=== PATIENT | male | born 1990 | race Caucasian/White ===

== ENCOUNTER 2023-08-23 10:55 | Emergency (ER) | payer OTHER, SELFPAY ==
[2023-08-23 11:09] VITALS: BP 143/92; PULSE 106; RESP 16; TEMP 36.6; O2SAT 98
[2023-08-23 11:11] VITALS: BP 143/92; PULSE 106; RESP 16; TEMP 36.6; O2SAT 98
--- NOTE | 2023-08-23 11:19 | ED.EYEPROB ---
HPI - Eye Problem General Chief complaint: Upper Respiratory Infection Stated complaint: Cold symptoms and rt eye infection Time Seen by Provider: 08/23/23 11:19 Source: patient Mode of arrival: ambulatory Limitations: no limitations History of Present Illness HPI Narrative: 32-year-old male presented for complaint of redness, pain and irritation to the right eye. Onset last night. He states it occurred after he had been mowing grass but denies known foreign body or injury. Rinsed the eye with eye drops last night. Endorses waking this morning with yellow crust and drainage to the lashes. Denies vision changes, photophobia, dizziness, nausea, vomiting or fever. Patient also reports nasal congestion and cough. He has taken DayQuil. Denies shortness of, wheezing, nausea, vomiting, fevers or chills. MD chief complaint: eye pain Related Data Allergies Allergy/AdvReac Type Severity Reaction Status Date / Time Penicillins Allergy Unknown Verified 08/23/23 11:10 Sulfa (Sulfonamide Allergy Unknown Verified 08/23/23 11:10 Antibiotics) Review of Systems Review of Systems: CONSTITUTIONAL: Denies body aches, fever, chills EYES:Endorses redness and pain to right eye; Denies visual changes, FB sensation, photophobia ENT: Denies rhinorrhea, congestion, sore throat, or otalgia. CARDIOVASCULAR: Denies chest pain, palpitations RESPIRATORY: Denies cough or dyspnea. SKIN: Denies rash, itching, or wounds. MUSCULOSKELETAL: Denies back pain, joint pain, or myalgia. NEUROLOGIC: Denies headache All systems reviewed & are unremarkable except as noted in HPI and below PMFSH Comments At time of signature, I have reviewed and agree with nursing past medical, surgical, social and family history unless otherwise noted. Please see nursing chart for further information. There is no relevant family history pertinent to the presenting complaint Exam Narrative: GENERAL: Well-appearing EYES: Right conjunctival injection, upper eye lid swelling/redness; no purulent drainage. PERRLA, EOMI. Lid eversion shows no FB. Corneal abrasion noted at 9o'clock position over the iris per godoy lamp exam. ENT: Mucous membranes pink and moist. Nasal congestion. TMs normal bilaterally. Throat normal, tonsils absent. Uvula midline. CHEST: Clear to auscultation. HEART: Regular rate and rhythm. SKIN: Warm, dry, no rash. Normal skin turgor. NEURO: No focal deficits. Alert and oriented x3 PSYCH: Normal affect. Eyes: Eyes/upper lids images: 1. area of corneal abrasion Course Course Emergency Course: Patient is aware of diagnosis, understands and agrees to treatment plan. Anticipatory guidance given. Patient agrees to follow-up as directed and is aware of reasons to seek care at the emergency department. Portions of this record may have been created with voice recognition software Level of Care: Express Care Visit Vital Signs Vital signs: Vital Signs Temperature 97.9 F 08/23/23 11:09 Pulse Rate 106 H 08/23/23 11:09 Respiratory Rate 16 08/23/23 11:09 Blood Pressure 143/92 H 08/23/23 11:09 Pulse Oximetry 98 08/23/23 11:09 Oxygen Delivery Room Air 08/23/23 11:09 Temperature 97.9 F 08/23/23 11:11 Pulse Rate 106 H 08/23/23 11:11 Respiratory Rate 16 08/23/23 11:11 Blood Pressure 143/92 H 08/23/23 11:11 Pulse Oximetry 98 08/23/23 11:11 Oxygen Delivery Room Air 08/23/23 11:11 Procedures FB Removal Eye Foreign Body #1: Location: eye (R) Topical anesthetic used: tetracaine Evidence of corneal penetration: Yes (corneal abrasion) Procedure performed under: other (godoy lamp) Patient tolerated procedure: well and no complications Foreign Body Removal Narrative: Right Eye was anesthetized with 1 drop of tetracaine and anesthesia was achieved. Lid was everted and examined for foreign body. Corneal abrasion noted to 9o'cloc position over the iris. No foreign
[2023-08-23] MEDS: DACRIOSE EYE IRRIGATION 118 ML BOTTLE 100 ML RIGHT EYE (11:23)
[2023-08-23] MEDS: TETRACAINE HCL 0.5% OPHTH SOLN 4 ML BTL 1 DROP RIGHT EYE (11:24)
[2023-08-23] MEDS: FLUORESCEIN SOD 1 MG/STRIP EACH EYE (11:24)
== END 2023-08-23 11:38 | disposition home or self-care (01) ==
PROVIDERS: Emergency Provider Nurse Practitioner Family; Referring Provider Emergency Medicine
DX: S05.01XA Injury of conjunctiva and corneal abrasion without foreign body, right eye, initial encounter (principal); X58.XXXA Exposure to other specified factors, initial encounter; J30.9 Allergic rhinitis, unspecified
CPT/HCPCS: 99213; A9270; G0463

== ENCOUNTER 2023-08-24 11:42 | Emergency (ER) | payer OTHER, SELFPAY ==
--- NOTE | 2023-08-24 11:46 | ED.URI ---
HPI - URI/Sore Throat General Chief Complaint: Ear Stated Complaint: Ear pain Time Seen by Provider: 08/24/23 11:54 Source: patient, RN notes reviewed and old records reviewed Mode of arrival: ambulatory Limitations: no limitations History of Present Illness HPI Narrative: 32-year-old male presents to [facility] pain that started this left ear pain since this morning. Was seen yesterday for a corneal abrasion. Also complaining of sinus congestion. Reports that he has been taking DayQuil Denies any fevers Onset (ago): hour(s) Related Data Allergies Allergy/AdvReac Type Severity Reaction Status Date / Time Penicillins AdvReac Mild Rash Verified 08/24/23 11:46 Sulfa (Sulfonamide AdvReac Mild Rash Verified 08/24/23 11:46 Antibiotics) Review of Systems Review of Systems: All systems reviewed & are unremarkable except as noted in HPI and below Constitutional: Constitutional: Reports no additional constitutional complaints Eyes: Eyes: Reports no additional eye complaints ENT: Reports as per HPI and Reports otalgia Cardiovascular: Cardiovascular: Reports no additional cardiovascular complaints, Denies chest pain and Denies dyspnea Respiratory: Respiratory: Reports no additional respiratory complaints, Denies chest congestion, Denies cough and Denies dyspnea Gastrointestinal: Gastrointestinal: Reports no additional gastrointestinal complaints, Denies abdominal pain, Denies nausea and Denies vomiting Musculoskeletal: Musculoskeletal: Reports no additional musculoskeletal complaints Integumentary/Breasts: Skin/Breast: Reports system reviewed and no additional complaints, except as docu Neurologic: Reports system reviewed and no additional complaints, except as documented Psychiatric: Psychiatric: Reports no additional psychiatric complaints Allergic/Immunologic: Allergic/Immunologic: Reports no additional allergic/immunologic complaints PMFSH Comments At the time of my signature, I reviewed and agree with the nursing past medical, surgical, social, and family history. There is no relevant family history pertinent to the patient complaint. Exam Const: General: cooperative, healthy appearing, comfortable, no acute distress, well developed, alert and well nourished Nutritional Appearance: well nourished Orientation/consciousness: patient oriented x3 Limitations: no limitations HENMT: Head: normal to inspection Ears: hearing grossly normal bilaterally, external ears normal, EAC's normal, mastoids normal, no periauricular adenopathy and TM abnormal bulging on the left and with fluid behind the TM bilateral; not erythematous and with no loss of landmarks Face/Nose/Sinus: Normal external nose present, Normal nares present, Normal nasal mucous membranes and turbinates present, normal facial exam and face symmetric Face and sinus: normal facial exam and face symmetric Throat: posterior oropharynx normal, uvula midline, postnasal drainage and no uvular edema Eyes: General: appearance normal, both eyes and all related structures Alignment and Position: alignment normal Periorbital: periorbital findings normal Pupils: Equal, round and reactive pupils present EOM: EOMs intact bilaterally Neck: Neck: normal visual inspection, full ROM, no lymphadenopathy and no meningeal signs Chest: Chest palpation & inspection: normal inspection of the chest Resp: Effort & Inspection: normal respiratory effort and able to speak in complete sentences Auscultation: clear to auscultation bilaterally, no crackles, no rales, no rhonchi and no wheezes Cardio: Rate: regular rate Rhythm: regular rhythm Skin: General skin exam: normal color and no rashes or lesions noted Lesions: no lesions Rashes: no rashes Trauma: no lacerations or abrasions Wounds: no wounds Neuro: General: patient oriented x3, gait normal, tone normal, moves all extremities and no meningeal signs Cranial nerves: Yes Equal, round and reactive pupils present Cognition (Neuro)
[2023-08-24 11:52] VITALS: BP 143/94; PULSE 91; RESP 16; TEMP 35.7; O2SAT 97
== END 2023-08-24 12:03 | disposition home or self-care (01) ==
PROVIDERS: Emergency Provider Nurse Practitioner
DX: H65.03 Acute serous otitis media, bilateral (principal); Z86.16 Personal history of COVID-19
CPT/HCPCS: 99213; G0463